=== PATIENT | female | born 1965 | race Caucasian/White ===

== ENCOUNTER 2018-02-08 14:59 | Emergency (ER) | payer OTHER ==
[2018-02-08 15:35] VITALS: BP 137/91
[2018-02-08] MEDS ORDERED: Acetaminophen TAB* 325 MG PO ONE (16:33)
--- NOTE | 2018-02-08 16:33 | UC ---
Upper Extremity HPI - HPI Summary HPI Summary: Patient is a 52-year-old female that slipped and injured her left wrist and forearm on the corner of a counter. She is experiencing pain on the ulnar aspect of the distal third of her left forearm. There is some mild numbness and tingling shooting down into the hand. She has not taken anything for pain. Injury occurred earlier today at work. She is right-hand dominant. 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 Onset/Duration: Sudden Onset, Lasting Hours Severity Initially: Moderate Severity Currently: Mild Pain Intensity: 4 Pain Scale Used: 0-10 Numeric Location Of Pain: Is Discrete @ Character: Aching Aggravating Factor(s): Movement Alleviating Factor(s): Rest Associated Signs And Symptoms: Positive: Swelling Related History: Occupational Injury, Dominant Hand Right Body - Head: 1 - tender/swollen - Allergies/Home Medications Allergies/Adverse Reactions: Allergies Allergy/AdvReac Type Severity Reaction Status Date / Time ibuprofen Allergy Rash And Verified 02/08/18 15:35 Itching Sulfa (Sulfonamide Allergy Rash And Verified 02/08/18 15:35 Antibiotics) Itching Home Medications: Home Medications Cholecalciferol (Vitamin D3) [Vitamin D3] 5,000 units PO DAILY 02/08/18 [ History Confirmed 02/08/18] DULoxetine CAP* [Cymbalta CAP*] 60 mg PO DAILY 02/08/18 [History Confirmed ] Levothyroxine TAB* [Synthroid TAB*] 137 mcg PO DAILY 02/08/18 [History Confirmed 02/08/18] Montelukast Sodium TAB* [Singulair TAB*] 10 mg PO DAILY 02/08/18 [History Confirmed 02/08/18] PMH/Surg Hx/FS Hx/Imm Hx Previously Healthy: Yes Respiratory History: Asthma Psychological History: Depression - Surgical History Surgical History: Yes Surgery Procedure, Year, and Place: hysterectomy, - Family History Known Family History: Positive: Hypertension - Social History Alcohol Use: Rare Substance Use Type: None Smoking Status (MU): Never Smoked Tobacco Review of Systems Constitutional: Negative Skin: Negative Eyes: Negative ENT: Negative Respiratory: Negative Cardiovascular: Negative Gastrointestinal: Negative Genitourinary: Negative Motor: Negative Neurovascular: Negative Musculoskeletal: Arthralgia, Myalgia Neurological: Negative Psychological: Negative Is Patient Immunocompromised?: No All Other Systems Reviewed And Are Negative: Yes Physical Exam Triage Information Reviewed: Yes Appearance: Well-Appearing, No Pain Distress, Well-Nourished Vital Signs: Initial Vital Signs Temp 97.5 F 02/08/18 15:30 Pulse 87 02/08/18 15:30 Resp 16 02/08/18 15:30 BP 137/91 02/08/18 15:30 Pulse Ox 100 02/08/18 15:30 Eyes: Positive: Conjunctiva Clear ENT: Positive: Hearing grossly normal. Negative: Nasal congestion, Nasal drainage, Trismus, Muffled voice, Hoarse voice Neck: Positive: Supple Respiratory: Positive: Lungs clear, Normal breath sounds, No respiratory distress, No accessory muscle use Cardiovascular: Positive: RRR, No Murmur Musculoskeletal: Positive: ROM Intact, Other: - see image Neurological: Positive: Alert Psychological Exam: Normal Skin Exam: Normal Diagnostics - Radiology No standard instances Xray Interpretation: No Acute Changes Upper Extremity Course/Dx - Differential Dx/Diagnosis Provider Diagnoses: left forearm contusion Discharge - Sign-Out/Discharge Documenting (check all that apply): Patient Departure - Discharge Plan Condition: Stable Disposition: HOME Patient Education Materials: Contusion in Adults (ED), R.I.C.E. Treatment (ED) Referrals: Jewell Jade MD [Primary Care Provider] - Additional Instructions: tylenol recheck in 1-2 weeks if not better - Billing Disposition and Condition Condition: STABLE Disposition: Home
--- NOTE | 2018-02-08 17:01 | RAD ---
INDICATION: Mid to distal left forearm pain after a fall TECHNIQUE: 2 views of the left forearm were obtained. FINDINGS: The bones are normal alignment. Joint spaces appear maintained. No fracture is seen. IMPRESSION: No radiographic evidence of acute fracture or dislocation. If the patient's symptoms persist, follow-up imaging is recommended.
== END 2018-02-08 17:09 | disposition home or self-care (01) ==
LOC: UCEAST 14:59
DX: S50.12XA Contusion of left forearm, initial encounter (principal); W01.198A Fall on same level from slipping, tripping and stumbling with subsequent striking against other object, initial encounter; Y93.9 Activity, unspecified; Y92.9 Unspecified place or not applicable; Y99.0 Civilian activity done for income or pay; J45.909 Unspecified asthma, uncomplicated; F32.9 Major depressive disorder, single episode, unspecified; Z88.6 Allergy status to analgesic agent; Z88.2 Allergy status to sulfonamides; Z82.49 Family history of ischemic heart disease and other diseases of the circulatory system
CPT/HCPCS: 99202; A9270-GY; G0463